=== PATIENT | female | born 1930 | race Caucasian/White ===

== ENCOUNTER 2016-09-30 18:20 | Inpatient (IN) | payer MEDICARE ==
[~2016-09-30 18:20] MED LIST: Sodium Chloride 0.9% 100 ML BAG ONE
--- NOTE | 2016-09-30 19:07 | RAD ---
PORTABLE UPRIGHT FRONTAL CHEST RADIOGRAPH 09/30/16 COMPARISON: 05/20/15 HISTORY: Altered mental status. FINDINGS: Inspiration is shallow. The patient is slightly rotated to the left. Midline sternotomy wires are pr esent. There is atherosclerotic calcification of the aortic arch. Right lung is clear. No pneumothor ax is seen. Mild increased linear density is seen in the left base suggesting atelectasis. Mitral an nulus calcification seen. IMPRESSION: No focal consolidation or alveolar edema. POS: [facility]
[2016-09-30 19:10] LABS: Bilirubin Negative (Negative); Blood, Urine Moderate (Negative); Clarity Turbid (Clear); Glucose, Urine (Dipstick) 500 mg/dL (Negative); Leukocyte Small (Negative); Nitrite Negative (Negative); Protein, Urine (Dipstick) 100 mg/dL (Neg-Trace); Specific Gravity, Urine 1.025 (1.005-1.030); Urobilinogen 0.2 mg/dL (0.2-1.0)
[2016-09-30 19:19] LABS: #Basophils 0.1 thou/uL (0.0-0.2); #Eosinphils 0.1 thou/uL (0.0-0.7); #Lymphocytes 1.6 thou/uL (1.20-3.40); #Monocytes 0.5 thou/uL (0.11-0.59); #Neutrophils 2.6 thou/uL (1.40-6.50); %Basophils 1.1 % (0.0-1.0); %Eosinophils 1.1 % (0.0-10.0); %Lymphocytes 33.2 % (21.0-51.0); %Monocytes 10.8 % (0.0-10.0); %Neutrophils 53.8 % (42.0-75.0); Hemoglobin 12.7 g/dL (12.0-16.0); Mean Corpuscular HGB CONC 33.8 g/dL (32.0-36.0); Mean Corpuscular Hemoglobin 29.8 pg (27.0-31.0); Mean Corpuscular Volume 88.1 fl (81.0-99.0); Mean Platelet Volume 7.4 fL (7.4-10.4); Platelet Count 222 thou/uL (130-400); RBC Distribution Width 11.6 % (11.5-14.5); Red Blood Cell (RBC) Count 4.25 mill/uL (4.20-5.40); White Blood Cell (WBC) Count 4.9 thou/uL (4.8-10.8)
[2016-09-30 19:19] LABS: Bacteria/HPF 4+ HPF (None Seen); Crystals/HPF RARE AMORPH URATES HPF (Negative); Hyaline Casts/LPF 7-10 HYALINE CAST LPF (0-3 Hyaline); Other Casts/LPF 7-10 MIXED CASTS LPF (0-3 Hyaline); RBC/HPF 21-50 HPF (0-3); Renal Epithelial 0-3 HPF (0-3); Squamous Epithelial 0-3 HPF (0-3); Transitional Epithelial 0-3 HPF (0-3); WBC/HPF 21-50 HPF (0-3); Yeast-All Forms Rare HPF (None Seen)
[2016-09-30 19:33] LABS: ALT (SGPT) Less than 6 U/L (0-55); AST (SGOT) 11 U/L (5-34); Albumin 4.1 g/dL (3.4-4.8); Alkaline Phosphatase 95 U/L (40-150); Anion Gap 19 mmol/L (10-20); BUN (Urea Nitrogen) 28 mg/dL (9.8-20.1); Bilirubin, Total 0.3 mg/dL (0.2-1.2); Calc. Creatinine Clearance 0 mL/min (70-130); Calcium 10.4 mg/dL (7.8-10.44); Carbon Dioxide 20 mmol/L (23-31); Chloride 100 mmol/L (98-107); Estimated GFR-MDRD 39; Glucose 274 mg/dL (83-110); Potassium 5.1 mmol/L (3.5-5.1); Protein, Total 7.1 g/dL (5.8-8.1); Sodium 134 mmol/L (136-145)
[2016-09-30] MEDS ORDERED: cefTRIAXone\\ROCEPHIN 1 GM VIAL ONE (19:38)
[2016-09-30 19:39] LABS: CKMB 0.6 ng/mL (0-6.6); Troponin I 0.036 ng/mL (< 0.028)
[2016-09-30] MEDS ORDERED: Dextrose 5% in Water 1,000 ML IV PRN (20:47)
[2016-09-30] MEDS ORDERED: Dextrose 50% Abboject 50 ML SYRINGE IVP PRN (20:49)
[2016-09-30] MEDS ORDERED: Acetaminophen 325 MG TAB PO PRN (20:50)
[2016-09-30] MEDS ORDERED: Ondansetron HCl/PF 4 MG/2 ML Vial IVP PRN (20:52)
[2016-09-30] MEDS: Mirtazapine 15 MG TAB PO SCH (23:05)
[2016-09-30] MEDS: Sodium Chloride 0.9% 1,000 ML IV SCH (23:18)
[2016-10-01] MEDS: Sodium Chloride 0.9% 1,000 ML IV SCH ×2 (03:48→13:54)
[2016-10-01] MEDS: Losartan Potassium 25 MG TAB PO SCH (08:14)
[2016-10-01] MEDS: Insulin Regular 300 UNITS/3 ML VIAL SC PRN ×3 (08:14→20:51)
[2016-10-01] MEDS: Enoxaparin Sodium 30 MG/0.3 ML SYRINGE SC SCH (08:15)
[2016-10-01] MEDS: Nystatin Cream 15 GM TUBE TOP SCH ×2 (08:15→20:52)
[2016-10-01 08:41] LABS: Anion Gap 14 mmol/L (10-20); BUN (Urea Nitrogen) 22 mg/dL (9.8-20.1); Calc. Creatinine Clearance 29 mL/min (70-130); Calcium 9.4 mg/dL (7.8-10.44); Carbon Dioxide 21 mmol/L (23-31); Chloride 108 mmol/L (98-107); Estimated GFR-MDRD 50; Glucose 155 mg/dL (83-110); Potassium 4.4 mmol/L (3.5-5.1); Sodium 139 mmol/L (136-145)
[2016-10-01] MEDS ORDERED: FLU VACC TS2016-17(65YR +) 0.5 ML SYRINGE IM ONE (09:00)
[2016-10-01] MEDS ORDERED: Losartan Potassium 25 MG TAB PO SCH (09:00)
--- NOTE | 2016-10-01 17:24 | HP ---
ADMITTING PHYSICIAN: Le Ruiz M.D. PRIMARY CARE PHYSICIAN: Cindy Gill [facility] in [place]. CHIEF COMPLAINT: Change in mental status and weakness. HISTORY OF PRESENT ILLNESS: Ms. Pineda is an 86-year-old, very pleasant female with a medical history of type 2 diabetes on insulin, dementia , glaucoma, hypertension, CAD and hyperlipidemia. The patient was brought into the emergency room by EMS due to altered mental status and weakness. The patient does live by herself, but her daughter checks on her routinely throughout the day. She had noted that in the morning patient was not eating which was very unusual for her, by evening time when she evaluated the patient again she found her on the floor and she says she did not feel well but without any specific complaints. Daughter states this has happened before and when this occurred, the patient was dehydrated and had a UTI. In the emergency room , the patient was evaluated and she was alert and awake, but she did not know her name and kept quoting the lord's prayer over and over. The patient had blood work done which showed dehydration and a urinary tract infection. The decision was made to admit the patient for IV fluids and IV antibiotic, pending urine culture. When I saw the patient today, she was little bit more alert, awake, oriented to time and place. She was not quoting the lord's prayer this afternoon, per nurses about 8 .a.m. she was still you unable to answer questions, but she has had a significant improvement in her mental status this pm. The daughter was also in the room and states this is an improvement and the patient is not back to baseline, but much improved than as of yesterday when she was brought out to the emergency room. The patient denies any fevers, chest pain, shortness of breath, nausea, vomiting, abdominal pain, no palpitation and she was eating her lunch and tolerating it nicely. PAST MEDICAL HISTORY: Dementia, type 2 diabetes on insulin, hypertension, glaucoma, hyperlipidemia, CAD. PAST SURGICAL HISTORY: Coronary artery bypass 2007, ORIF of the greater tuberosity in 2009, rotator cuff tear repair in 2009. FAMILY HISTORY: Parents , sisters healthy, and no other history. SOCIAL HISTORY: The patient lives at home by herself and was surrounded by a sister, son and daughter who checks up on her routinely, denies any alcohol use , tobacco use or illicit drug use. ALLERGIES: No known drug allergies. MEDICATIONS: Metformin 500 mg b.i.d., Cozaar 25 mg daily, Remeron 15 mg at bedtime. CODE STATUS: Patient is a FULL CODE, but do not intubate. REVIEW OF SYSTEMS: Complete review of systems was negative, otherwise mentioned in the history of present illness or below. CONSTITUTIONAL: Denies weight loss, weight gain. Complains of weakness and altered mental status. CARDIOVASCULAR: Denies chest pain, palpitation, orthopnea. RESPIRATORY: Denies cough, shortness of breath. GASTROINTESTINAL: Denies abdominal pain. Complains of poor appetite. Denies diarrhea, or constipation. GENITOURINARY: Denies urinary frequency, urgency or dysuria. MUSCULOSKELETAL: Complains of generalized weakness. Denies any joint swelling or pain. NEUROLOGICAL: Confused. SKIN: Denies rashes. EYES: Denies double vision. ENT: Denies nosebleeds, sore throat or neck pain. PHYSICAL EXAMINATION: VITAL SIGNS: Temperature 98.0, pulse 70, respirations 18, O2 sat 94% on room air, blood pressure 132/72. GENERAL: The patient is a very pleasant 86-year-old female sitting up in bed having lunch, in no apparent distress, cooperative with the exam. Alert, awake, oriented x2. HEENT: Normocephalic, atraumatic. Pupils are round, reactive and equal to light. Sclerae nonicteric. Moist mucous membranes without erythema or exudate. NECK: Supple, without lymphadenopathy or thyromegaly. LYMPHATICS: No JVD distention. HEART: The patient does have a 4/6 systolic murmur. LUNGS: Clear to auscultation bilaterally. ABDOMEN: Positive bowel sounds, soft, nontender, nondistended, no guarding, no rebound. No palpable masses. EXTREMITIES: No clubbing, cyanosis or edema. NEUROLOGIC: Patient is alert, awake, oriented x2. No obvious focal weakness. SKIN: Small abrasions noted to the left upper chest and mild groin rash. LABORATORY AND IMAGING STUDIES: White count 4.9, hemoglobin 12.7, hematocrit 37.5, platelets 222. Sodium 134, potassium 5.1, bicarbonate 20, BUN 28, creatinine 1.29, glucose 274. BNP 141.7. Urine straw color turbid, high glucose, high protein, moderate blood, small leukocyte esterase, positive WBC. Chest x-ray, no focal consolidation or alveolar edema. ASSESSMENT AND PLAN: This is an 86-year-old female with a history of dementia, hypertension, CAD, hyperlipidemia, glaucoma who presented to the emergency room via EMS due to change in mental status and generalized weakness. In the emergency room, the patient was noted to have a urinary tract infection. We will admit the patient to the medical floor for altered mental status, urinary tract infection and dehydration. We will place the patient on IV Rocephin and Levaquin. We will await urine culture and adjust to p.o. medication as deemed necessary. We will continue the patient on IV fluids until she is able to tolerate oral intake nicely. We will replete electrolytes and monitor for any hemodynamic instability. We will follow urine culture. We will restart the patient's home medications. We will do Accu-Cheks a.c. and at bedtime. We will place her on nystatin b.i.d. f or the groin rash. We will place her on Protonix for deep venous thrombosis prophylaxis and Lovenox and gastrointestinal prophylaxis. We will update family on the patient's progress. CODE STATUS: The patient is a FULL CODE, but no intubation to be done. DISPOSITION: Anticipate greater than 3 midnights stay given altered mental status, generalized weakness, and comorbidities. We will plan to discharge the patient home once medically stable. [facility]
[2016-10-01] MEDS: cefTRIAXone\\ROCEPHIN 1 GM in Sodium Chloride 0.9% 100 ML IVPB SCH (20:45)
[2016-10-01] MEDS: Mirtazapine 15 MG TAB PO SCH ×2 (20:45)
[2016-10-02] MEDS: Sodium Chloride 0.9% 1,000 ML IV SCH ×2 (01:39→11:48)
[2016-10-02] MEDS: Enoxaparin Sodium 30 MG/0.3 ML SYRINGE SC SCH (05:24)
[2016-10-02] MEDS: Losartan Potassium 25 MG TAB PO SCH (08:15)
[2016-10-02] MEDS: Nystatin Cream 15 GM TUBE TOP SCH ×2 (08:16→20:51)
[2016-10-02] MEDS: Insulin Regular 300 UNITS/3 ML VIAL SC PRN ×2 (17:06→20:52)
[2016-10-02] MEDS: cefTRIAXone\\ROCEPHIN 1 GM in Sodium Chloride 0.9% 100 ML IVPB SCH (19:41)
[2016-10-02] MEDS: Mirtazapine 15 MG TAB PO SCH (20:50)
[2016-10-03] MEDS: Sodium Chloride 0.9% 1,000 ML IV SCH ×3 (03:33→23:21)
[2016-10-03] MEDS: Enoxaparin Sodium 30 MG/0.3 ML SYRINGE SC SCH (06:02)
[2016-10-03 06:10] VITALS: BMI 20.9
[2016-10-03] MEDS: Nystatin Cream 15 GM TUBE TOP SCH ×2 (08:35→20:45)
[2016-10-03] MEDS: Losartan Potassium 25 MG TAB PO SCH (08:35)
[2016-10-03] MEDS ORDERED: Sodium Chloride 0.9% 1,000 ML BAG ONE (11:35)
[2016-10-03] MEDS: Insulin Regular 300 UNITS/3 ML VIAL SC PRN ×2 (17:00→20:46)
[2016-10-03] MEDS: Mirtazapine 15 MG TAB PO SCH (20:45)
[2016-10-03] MEDS: cefTRIAXone\\ROCEPHIN 1 GM in Sodium Chloride 0.9% 100 ML IVPB SCH (20:45)
[2016-10-04] MEDS: Enoxaparin Sodium 30 MG/0.3 ML SYRINGE SC SCH (05:50)
[2016-10-04] MEDS: Sodium Chloride 0.9% 1,000 ML IV SCH (07:49)
[2016-10-04] MEDS: Losartan Potassium 25 MG TAB PO SCH (08:57)
[2016-10-04] MEDS: Nystatin Cream 15 GM TUBE TOP SCH (08:58)
[2016-10-04] MEDS ORDERED: Sulfameth/Trimethoprim DS 800-160mg TAB PO SCH ×2 (10:30→21:00)
[2016-10-04 12:54] VITALS: BP 189/83; TEMP 97
--- NOTE | 2016-10-05 00:53 | DIS ---
DATE OF ADMISSION: 09/30/2016 DATE OF DISCHARGE: 10/04/2016 ADMITTING AND DISCHARGING PHYSICIAN: Le Ruiz M.D. FINAL DIAGNOSES: 1. Altered mental status, resolved. 2. Generalized weakness, improving. 3. Dehydration, resolved. 4. Urinary tract infection, improving. 5. Diabetes type 2. 6. Hypertension. 7. Dementia. DISCHARGE MEDICATIONS: Double strength Bactrim 1 tab b.i.d. x2 more days to be completed on 10/06/2016; metformin 500 b.i.d., Cozaar 25 daily, Remeron 15 at bedtime. BRIEF HOSPITAL COURSE: Ms. Pineda is an 86-year-old female with a history of dementia, type 2 diabetes, glaucoma, CAD, hypertension, hyperlipidemia. Patient was brought to the emergency room due to altered mental status and generalized weakness. Patient was noted to have a urinary tract infection and some dehydration and subsequently admitted for IV antibiotics and IV fluids. The patient's urine culture grew E. coli and Klebsiella, and patient was initially treated with IV Rocephin and IV Levaquin. Patient progressively improved. Her mental status returned to baseline, and she was able to communicate better with family members and with caretakers. Patient was noted to be weak, and physical therapy and occupational therapy were consulted for strengthening and to help with activities of daily living prior to return to home. Patient subsequently improved, but she was still weak , but per family members, they wanted patient to return home and continue physical therapy with home health. Patient was switched to p.o. antibiotics, Bactrim, and subsequently discharged home in a stable condition. Patient was discharged back to home with family members in a stable condition. DISCHARGE VITALS: Temperature 97.0, pulse 77, respirations 20, O2 sat 96%, blood pressure 165/77. DISCHARGE INSTRUCTIONS: Patient to follow up with primary care physician within 1 week. ACTIVITY: Ambulate with rolling walker. [facility] to resume physical therapy and occupational therapy. DIET: Diabetic diet. Fall precautions. CODE STATUS: Patient is a FULL CODE, but do not intubate. [facility]
== END 2016-10-04 14:10 | disposition home or self-care (01) | DRG 690 ==
LOC: MADERS 18:20 → MADMS 20:05
PROVIDERS: ADMIT Family Medicine; ATTEND Family Medicine
DX: N39.0 Urinary tract infection, site not specified (principal); E11.65 Type 2 diabetes mellitus with hyperglycemia; F03.90 Unspecified dementia, unspecified severity, without behavioral disturbance, psychotic disturbance, mood disturbance, and anxiety; B96.1 Klebsiella pneumoniae [K. pneumoniae] as the cause of diseases classified elsewhere; E86.0 Dehydration; I10 Essential (primary) hypertension; R41.82 Altered mental status, unspecified; H40.9 Unspecified glaucoma; I25.10 Atherosclerotic heart disease of native coronary artery without angina pectoris; B96.20 Unspecified Escherichia coli [E. coli] as the cause of diseases classified elsewhere; E78.5 Hyperlipidemia, unspecified; R21 Rash and other nonspecific skin eruption
CPT/HCPCS: 36415; 36416; 51701; 71010; 80048; 80053; 81003; 81015; 82553; 83880; 84484; 85025; 87077; 87086; 87186; 93005; 96361; 96365; A4216; A4353; G8978-GP-CJ; G8979-GP-CI; J0696; J1650; J1815; J1956; J7050

== ENCOUNTER 2017-11-27 20:26 | Emergency (ER) | payer MEDICARE ==
[2017-11-27 21:04] LABS: Bilirubin Negative (Negative); Blood, Urine Trace (Negative); Clarity Cloudy (Clear); Glucose, Urine (Dipstick) Negative (Negative); Leukocyte Large (Negative); Nitrite Positive (Negative); Protein, Urine (Dipstick) Negative (Neg-Trace); Urobilinogen 0.2 mg/dL (0.2-1.0); pH, Urine 5.5 (5.0-9.0)
--- NOTE | 2017-11-27 21:43 | RAD ---
PORTABLE CHEST: 11/27/17 COMPARISON: 09/30/16 study. HISTORY: Altered mental status. Heart size appears borderline to slightly enlarged with postop sternotomy change. The patient is rota stefanie. Linear scarring in the left base. The bones are demineralized. IMPRESSION: Chronic changes. No acute process. Stable exam. POS: [facility]
[2017-11-27 22:01] LABS: Specific Gravity, Urine 1.006 (1.002-1.036)
[2017-11-27 22:02] LABS: Bacteria/HPF 4+ HPF (None Seen); Renal Epithelial 0-3 HPF (0-3); Squamous Epithelial 0-3 HPF (0-3); Transitional Epithelial 0-3 HPF (0-3)
[2017-11-27 22:09] LABS: #Basophils 0.1 thou/uL (0.0-0.2); #Eosinphils 0.1 thou/uL (0.0-0.7); #Lymphocytes 1.9 thou/uL (1.20-3.40); #Monocytes 0.4 thou/uL (0.11-0.59); #Neutrophils 1.6 thou/uL (1.40-6.50); %Basophils 1.3 % (0.0-1.0); %Lymphocytes 46.3 % (21.0-51.0); %Neutrophils 39.4 % (42.0-75.0); Hemoglobin 10.8 g/dL (12.0-16.0); Mean Corpuscular HGB CONC 33.6 g/dL (32.0-36.0); Mean Corpuscular Hemoglobin 28.4 pg (27.0-31.0); Mean Corpuscular Volume 84.7 fl (81.0-99.0); Mean Platelet Volume 6.5 fL (7.4-10.4); Platelet Count 162 thou/uL (130-400); RBC Distribution Width 12.1 % (11.5-14.5); White Blood Cell (WBC) Count 4.2 thou/uL (4.8-10.8)
[2017-11-27 22:21] LABS: ALT (SGPT) 9 U/L (8-55); AST (SGOT) 11 U/L (5-34); Albumin 3.6 g/dL (3.4-4.8); Alkaline Phosphatase 65 U/L (40-150); Anion Gap 16 mmol/L (10-20); BUN (Urea Nitrogen) 36 mg/dL (9.8-20.1); Bilirubin, Total 0.3 mg/dL (0.2-1.2); Calc. Creatinine Clearance 0 mL/min (70-130); Calcium 9.4 mg/dL (7.8-10.44); Carbon Dioxide 20 mmol/L (23-31); Chloride 105 mmol/L (98-107); Estimated GFR-MDRD 38; Globulin 2.5 g/dL (2.4-3.5); Glucose 193 mg/dL (83-110); Potassium 4.4 mmol/L (3.5-5.1); Protein, Total 6.1 g/dL (6.0-8.3); Sodium 137 mmol/L (136-145)
[2017-11-27 22:27] LABS: CKMB 1.5 ng/mL (0-6.6); Troponin I 0.043 ng/mL (< 0.028)
[2017-11-27] MEDS ORDERED: cefTRIAXone\\ROCEPHIN 1 GM VIAL ONE (22:51)
== END 2017-11-27 23:10 | disposition home or self-care (01) ==
LOC: MADERS 20:26
DX: N39.0 Urinary tract infection, site not specified (principal); I35.0 Nonrheumatic aortic (valve) stenosis; R29.6 Repeated falls; F03.90 Unspecified dementia, unspecified severity, without behavioral disturbance, psychotic disturbance, mood disturbance, and anxiety; E11.9 Type 2 diabetes mellitus without complications; Z79.4 Long term (current) use of insulin; I10 Essential (primary) hypertension
CPT/HCPCS: 36415; 71045; 80053; 81003; 81015; 82553; 83605; 84484; 85025; 87040; 87077; 87086; 87186; 96372; J0696

== ENCOUNTER 2017-12-05 15:29 | Emergency (ER) | payer MEDICARE ==
[2017-12-05 16:04] LABS: #Eosinphils 0.1 thou/uL (0.0-0.7); #Lymphocytes 1.8 thou/uL (1.20-3.40); #Monocytes 0.4 thou/uL (0.11-0.59); #Neutrophils 1.8 thou/uL (1.40-6.50); %Eosinophils 2.6 % (0.0-10.0); %Lymphocytes 43.8 % (21.0-51.0); %Neutrophils 43.6 % (42.0-75.0); Hemoglobin 11.2 g/dL (12.0-16.0); Mean Corpuscular HGB CONC 32.6 g/dL (32.0-36.0); Mean Corpuscular Hemoglobin 27.8 pg (27.0-31.0); Mean Corpuscular Volume 85.3 fl (81.0-99.0); Mean Platelet Volume 5.2 fL (7.4-10.4); Platelet Count 167 thou/uL (130-400); RBC Distribution Width 12.6 % (11.5-14.5); Red Blood Cell (RBC) Count 4.02 mill/uL (4.20-5.40); White Blood Cell (WBC) Count 4.1 thou/uL (4.8-10.8)
[2017-12-05 16:23] LABS: ALT (SGPT) 7 U/L (8-55); AST (SGOT) 11 U/L (5-34); Albumin 3.8 g/dL (3.4-4.8); Alkaline Phosphatase 59 U/L (40-150); Anion Gap 14 mmol/L (10-20); BUN (Urea Nitrogen) 43 mg/dL (9.8-20.1); Bilirubin, Total 0.5 mg/dL (0.2-1.2); Calc. Creatinine Clearance 0 mL/min (70-130); Calcium 10.2 mg/dL (7.8-10.44); Carbon Dioxide 21 mmol/L (23-31); Chloride 109 mmol/L (98-107); Estimated GFR-MDRD 34; Globulin 2.4 g/dL (2.4-3.5); Glucose 112 mg/dL (83-110); Magnesium 1.4 mg/dL (1.6-2.6); Potassium 4.4 mmol/L (3.5-5.1); Protein, Total 6.2 g/dL (6.0-8.3); Sodium 140 mmol/L (136-145)
[2017-12-05 16:25] LABS: CKMB 0.7 ng/mL (0-6.6); Troponin I 0.048 ng/mL (< 0.028)
[2017-12-05] MEDS ORDERED: Magnesium Sulfate 2 GM/NS 0.9% 50 ML BAG ONE (16:32)
[2017-12-05] MEDS ORDERED: Sodium Chloride 0.9% 500 ML BAG ONE (17:18)
== END 2017-12-05 19:26 | disposition short-term general hospital (02) ==
LOC: MADERS 15:29
DX: N39.0 Urinary tract infection, site not specified (principal); R79.89 Other specified abnormal findings of blood chemistry; F03.90 Unspecified dementia, unspecified severity, without behavioral disturbance, psychotic disturbance, mood disturbance, and anxiety; E11.9 Type 2 diabetes mellitus without complications; I10 Essential (primary) hypertension; Z79.4 Long term (current) use of insulin
CPT/HCPCS: 36415; 80053; 82553; 83735; 84443; 84484; 85025; 93005; 96361; 96365; J3475; J7050

== ENCOUNTER 2018-01-09 08:18 | Emergency (ER) | payer MEDICARE ==
[2018-01-09 08:55] LABS: #Lymphocytes 1.3 thou/uL (1.20-3.40); #Monocytes 0.4 thou/uL (0.11-0.59); #Neutrophils 3.8 thou/uL (1.40-6.50); %Basophils 0.7 % (0.0-1.0); %Eosinophils 0.8 % (0.0-10.0); %Lymphocytes 23.6 % (21.0-51.0); %Monocytes 7.8 % (0.0-10.0); %Neutrophils 67.1 % (42.0-75.0); Hemoglobin 11.1 g/dL (12.0-16.0); Mean Corpuscular HGB CONC 31.2 g/dL (32.0-36.0); Mean Corpuscular Hemoglobin 27.4 pg (27.0-31.0); Mean Corpuscular Volume 87.7 fL (78.0-98.0); Mean Platelet Volume 6.4 fL (7.4-10.4); Platelet Count 178 thou/uL (130-400); RBC Distribution Width 12.7 % (11.5-14.5); Red Blood Cell (RBC) Count 4.07 mill/uL (4.20-5.40); White Blood Cell (WBC) Count 5.6 thou/uL (4.8-10.8)
[2018-01-09 09:14] LABS: ALT (SGPT) 8 U/L (8-55); AST (SGOT) 13 U/L (5-34); Albumin 3.9 g/dL (3.4-4.8); Alkaline Phosphatase 82 U/L (40-150); Anion Gap 19 mmol/L (10-20); BUN (Urea Nitrogen) 15 mg/dL (9.8-20.1); Bilirubin, Total 0.5 mg/dL (0.2-1.2); Calc. Creatinine Clearance 0 mL/min (70-130); Carbon Dioxide 19 mmol/L (23-31); Chloride 102 mmol/L (98-107); Estimated GFR-MDRD 42; Globulin 2.8 g/dL (2.4-3.5); Glucose 231 mg/dL (83-110); Magnesium 1.7 mg/dL (1.6-2.6); Potassium 4.6 mmol/L (3.5-5.1); Protein, Total 6.7 g/dL (6.0-8.3); Sodium 135 mmol/L (136-145)
[2018-01-09 09:15] LABS: CKMB 1.4 ng/mL (0-6.6); Troponin I 0.147 ng/mL (< 0.028)
[2018-01-09 09:38] LABS: Bilirubin Negative (Negative); Blood, Urine Trace (Negative); Clarity Slightly Cloudy (Clear); Glucose, Urine (Dipstick) 100 mg/dL (Negative); Leukocyte Moderate (Negative); Nitrite Positive (Negative); Protein, Urine (Dipstick) 30 mg/dL (Neg-Trace); Urobilinogen 0.2 mg/dL (0.2-1.0)
[2018-01-09 09:42] LABS: RBC/HPF 0-3 HPF (0-3)
[2018-01-09 09:43] LABS: Bacteria/HPF 3+ HPF (None Seen); Squamous Epithelial 0-3 HPF (0-3)
--- NOTE | 2018-01-09 09:46 | CT ---
CT OF THE BRAIN WITHOUT CONTRAST: Date: 01/09/18 COMPARISON: 09/22/09. HISTORY: Fall yesterday with unknown loss of consciousness. Head trauma. TECHNIQUE: Multiple contiguous axial images were obtained in a CT of the brain without contrast. FINDINGS: Mild diffuse cerebral atrophy is seen. There is no evidence of hydrocephalus, intracranial hemorrhage , or extra-axial fluid collection. No large confluent infarction is seen. Intracranial vascular calci fications are present. The calvarium and overlying soft tissues are unremarkable. The visualized paranasal sinuses and masto id air cells are well aerated. IMPRESSION: No evidence of acute intracranial abnormality. POS: [facility]
--- NOTE | 2018-01-09 09:56 | CT ---
CT OF THE CERVICAL SPINE WITHOUT CONTRAST: Comparison: None. History: Fall yesterday with head trauma and neck pain. Technique: Multiple contiguous axial images were obtained in a CT of the cervical spine without contr ast. Sagittal and coronal reformats were performed. FINDINGS: There are mild degenerative changes in the cervical spine. Vertebral bodies and intervertebral discs demonstrate normal height and alignment without fracture or subluxation. No prevertebral soft tissue swelling is seen. The posterior facets are well aligned. Normal alignment of the skull base with the cervical spine is seen. There are calcifications in the bilateral carotid arteries near the bifurcation. The lung apices are unremarkable. IMPRESSION: No evidence of acute osseous abnormality of the cervical spine. POS: [facility]
[2018-01-09] MEDS ORDERED: Lisinopril 10 MG TAB ONE (10:09)
[2018-01-09] MEDS ORDERED: cefTRIAXone\\ROCEPHIN 1 GM VIAL ONE (10:55)
== END 2018-01-09 11:15 | disposition short-term general hospital (02) ==
LOC: MADERS 08:18
DX: R41.82 Altered mental status, unspecified (principal); S00.81XA Abrasion of other part of head, initial encounter; N39.0 Urinary tract infection, site not specified; R79.89 Other specified abnormal findings of blood chemistry; E11.9 Type 2 diabetes mellitus without complications; I10 Essential (primary) hypertension; W19.XXXA Unspecified fall, initial encounter
CPT/HCPCS: 51701; 70450; 72125; 80053; 81003; 81015; 82553; 83735; 84443; 84484; 85025; 93005; 96374; A4353; J0696

== ENCOUNTER 2018-04-08 10:12 | Inpatient (IN) | payer MEDICARE ==
[~2018-04-08 10:12] MED LIST changes: +Sodium Chloride 0.9% 1,000 ML BAG ONE; -Sodium Chloride 0.9% 100 ML BAG ONE
[2018-04-08 10:40] LABS: Bilirubin Negative (Negative); Blood, Urine Moderate (Negative); Clarity Cloudy (Clear); Glucose, Urine (Dipstick) Negative (Negative); Leukocyte Large (Negative); Nitrite Positive (Negative); Protein, Urine (Dipstick) 100 mg/dL (Neg-Trace); Urobilinogen 0.2 mg/dL (0.2-1.0); pH, Urine 8.5 (5.0-9.0)
[2018-04-08 10:45] LABS: Bacteria/HPF 4+ HPF (None Seen); RBC/HPF 0-3 HPF (0-3); Squamous Epithelial 0-3 HPF (0-3)
[2018-04-08] MEDS ORDERED: cefTRIAXone\\ROCEPHIN 1 GM VIAL ONE (10:53)
[2018-04-08] MEDS ORDERED: Ondansetron HCl/PF 4 MG/2 ML Vial ONE (14:05)
--- NOTE | 2018-04-08 14:24 | RAD ---
CHEST 1 VIEW: Date: 04/08/18 HISTORY: Cough. COMPARISON: Radiograph dated 12/05/17. FINDINGS: Lungs without focal confluent air space consolidation, pneumothorax, or effusion. Mild edema. Chronic left lateral pleural thickening. Mitral annular calcifications. IMPRESSION: Chronic changes. No acute intrathoracic abnormality. POS: [facility]
[2018-04-08] MEDS ORDERED: Ondansetron ODT 4 MG TAB PO PRN (17:31)
[2018-04-08] MEDS ORDERED: Enoxaparin Sodium 30 MG/0.3 ML SYRINGE SC SCH (17:31)
[2018-04-08] MEDS ORDERED: Acetaminophen 325 MG TAB PO PRN ×2 (17:31→18:14)
[2018-04-08] MEDS ORDERED: HYDROcodone/Acetaminophen 5/325 mg Tablet PO PRN ×2 (17:31)
[2018-04-08] MEDS ORDERED: Dextrose 50% Abboject 50 ML SYRINGE SLOW IVP PRN (18:17)
[2018-04-08] MEDS ORDERED: Dextrose 5% in Water 1,000 ML IV PRN (18:17)
[2018-04-08] MEDS ORDERED: metFORMIN 850 MG TAB PO SCH (18:30)
[2018-04-08] MEDS: Sodium Chloride 0.9% 1,000 ML IV SCH (18:33)
[2018-04-08] MEDS: HumaLOG 300 UNITS/3 ML VIAL SC PRN (20:11)
[2018-04-08] MEDS: Mirtazapine 15 MG TAB PO SCH (20:12)
[2018-04-08] MEDS: Famotidine 20 MG TAB PO SCH (20:12)
[2018-04-09 02:32] VITALS: BMI 18.3
[2018-04-09] MEDS: Sodium Chloride 0.9% 1,000 ML IV SCH ×2 (04:04→12:52)
[2018-04-09 06:35] LABS: #Basophils 0.1 thou/uL (0.0-0.2); #Eosinphils 0.2 thou/uL (0.0-0.7); #Lymphocytes 1.6 thou/uL (1.20-3.40); #Monocytes 0.5 thou/uL (0.11-0.59); #Neutrophils 3.7 thou/uL (1.40-6.50); %Eosinophils 2.6 % (0.0-10.0); %Monocytes 8.5 % (0.0-10.0); %Neutrophils 60.9 % (42.0-75.0); Hemoglobin 11.4 g/dL (12.0-16.0); Mean Corpuscular HGB CONC 33.5 g/dL (32.0-36.0); Mean Corpuscular Hemoglobin 29.5 pg (27.0-31.0); Mean Corpuscular Volume 88.2 fL (78.0-98.0); Mean Platelet Volume 6.4 fL (7.4-10.4); Platelet Count 195 thou/uL (130-400); RBC Distribution Width 12.1 % (11.5-14.5); Red Blood Cell (RBC) Count 3.84 mill/uL (4.20-5.40); White Blood Cell (WBC) Count 6.1 thou/uL (4.8-10.8)
[2018-04-09 06:49] LABS: ALT (SGPT) Less than 7 U/L (8-55); AST (SGOT) 11 U/L (5-34); Albumin 3.4 g/dL (3.4-4.8); Alkaline Phosphatase 79 U/L (40-150); Anion Gap 12 mmol/L (10-20); BUN (Urea Nitrogen) 35 mg/dL (9.8-20.1); Bilirubin, Total 0.2 mg/dL (0.2-1.2); Calc. Creatinine Clearance 21 mL/min (70-130); Calcium 9.5 mg/dL (7.8-10.44); Carbon Dioxide 23 mmol/L (23-31); Chloride 109 mmol/L (98-107); Estimated GFR-MDRD 38; Globulin 2.7 g/dL (2.4-3.5); Glucose 197 mg/dL (83-110); Potassium 4.4 mmol/L (3.5-5.1); Protein, Total 6.1 g/dL (6.0-8.3); Sodium 140 mmol/L (136-145)
--- NOTE | 2018-04-09 07:18 | HP ---
DATE OF ADMISSION: 04/08/2018 ATTENDING: Caitlin Cortes M.D. PRIMARY CARE PHYSICIAN: Cindy Gill, [facility]. REASON FOR ADMISSION: Increased confusion and UTI. HISTORY OF PRESENT ILLNESS: Ms. Pineda is an 87-year-old female with significant history of advanced dementia associated with intermittent behavioral disturbances, history of dysphagia, noncompliant with diet, family declined alternatives for feedings including enteral feeding/PEG tube, hypertension, unsteady gait, history of falls. The patient was recently admitted to [facility] for skilled rehabilitation. She stayed in [place] recently from 01/18/2018 for deconditioning/general weakness. She went to [facility] after the patient was hospitalized for delirium and dementia from [facility]. The patient has history of recurrent UTI. She had been treated for this both inpatient and outpatient several times in the last 3 months. During her recent stay in the alf, she was treated 2-3 times for UTI with oral antibiotic. The patient was recently discharged on 03/29/2018 home per family's request on extended use of macrobid for prophylactic purposes that she is supposed to complete for 4 weeks. The patient was sent to the ER today by the family for further evaluation of increased confusion. History was taken from the ER records. No family members are available at this time in the room. The patient is a poor historian secondary to fairly advanced dementia and could not contribute to the history. Per ER report, the patient was initially complaining of dysuria. The patient could not describe the onset of symptoms. Further exam in the ER, her initial vital signs showed blood pressure 157/85, pulse 97, respiration 18, and temperature 97.1. Her initial lab work showed urinalysis with moderate blood in the urine, positive nitrite, positive leukocyte esterase and greater than 50 to TNTC urine wbc with 4+ bacteria, sugar at that time was 305 at around 19:46 p.m. Her chest x-ray was unremarkable except for chronic changes of left pleural thickening and mitral annular calcifications, otherwise no acute process. Initial treatment in the ER includes ceftriaxone 1 gram IV and sodium chloride 0.9% IV 1 liter infusion. Patient was reported y the ER physician with no SIRS syndrome, thus admitted in [facility]. When evaluated on the floor, patient is awake, alert, and interactive. She appears confused but seems to be in her baseline mental state based on my previous encounters with patient. She answers simple questions with some appropriateness. She reports no significant pain. She reports no other apparent concerns at this time. Nursing Staff on the floor reports that when the first dose of metformin was given, patient had a hard time swallowing the pill. Of note, the patient has a significant history of dysphagia with increased risk of aspiration as evident by her most recent modified barium swallow study on 02/2018 in the alf. Patient was recommended alternatives for oral intake then; however, family declined and signed on AMA waiver. She was tried on pureed diet and nectar thickened, but patient refuses to eat that family requested for mechanical soft diet, against medical advice with known risk for aspiration. PAST MEDICAL HISTORY: Hypertension, advanced dementia with behavioral disturbances CAD, diabetes type 2, hypertension, glaucoma, dyslipidemia, recurrent urinary tract infection, dysphagia with evidence of aspiration and penetration by modified barium swallow study on 03/07/2018. AMA waiver was signed by daughter, Kristina Stearns on 03/11/2018, declining dietary recommendations and alternatives for oral feeding including PEG tube. Alzheimer's dementia with behavioral disturbances with latest MMSE 16/30 on 03/22/[address] [facility]. Congestive heart failure with left ventricular diastolic dysfunction with ejection fraction of 50%-55% on echo on 11/[address] [facility]. Pyloric stenosis by CT scan showed thickening of the pylorus, declined EGD. Abdominal aortic aneurysm without ruptured. Bilobed infrarenal with dense vascular calcifications throughout the thoracic and abdominal aorta, for conservative management only. Atherosclerotic cardiovascular disease. Unsteady gait with history of falling. History of noncompliance with medical treatment, presenting hazards to Health. Weight loss, depression, and anxiety. SPECIALISTS: Dr. Perera for Cardiology; Dr. Joy for GI, Dr. Sutton for Infectious Disease. PAST SURGICAL HISTORY: CABG in the recurrent urinary tract infection, bypass in 2018, ORIF of the greater tuberosity in 2009, rotator cuff tear repair in 2009. HOSPITALIZATION: Acute encephalopathy and sepsis in 12/06/2017, delirium and dementia in 01/09/2018, [facility]. FAMILY HISTORY: Noncontributory. SOCIAL HISTORY: The patient is a nonsmoker, no alcohol or illicit drug use. The patient lives by herself with family lives around the area. Kristina Stearns is the daughter that is actively involved in patient's care, responsible alliance party. ADLs, she can manually propel wheelchair. She ambulates with rolling walker with unsteadiness. ALLERGIES: NKDA. REVIEW OF SYSTEMS: Unobtainable secondary to advanced dementia, is less confusion. She answers no to all generalized review of system. MEDICATIONS: 1. Aspirin 81 mg p.o. daily. 2. Metformin 850 mg p.o. b.i.d. 3. Losartan 25 mg p.o. daily. 4. Mirtazapine 15 mg p.o. at bedtime. PHYSICAL EXAMINATION: VITAL SIGNS: Blood pressure 142/69, temperature 96.8, pulse 87, respirations 22 , O2 sat 96% room air, height 5 feet 1 inch, weight 97 pounds. GENERAL: The patient is awake, alert, oriented to name only. She thinks she is in [facility]. Disoriented to time. Chronically ill-looking, frail , elderly, interactive, comfortable in exam, not in acute distress. HEENT: Normocephalic, atraumatic. PERRL. Intact EOM. Anicteric sclerae. Oral mucosa is moist. No lesions. NECK: Supple. No LAD/JVD. CHEST: Normal excursion, nonlabored breathing, clear to auscultation bilaterally. CARDIAC: RRR. Normal S1 and S2. ABDOMEN: Flat, soft, normoactive bowel sounds with mild suprapubic tenderness, no rebound, no guarding. Negative CVA tenderness bilaterally. EXTREMITIES: No edema, no cyanosis. SKIN: Positive multiple superficial excoriations of both upper and lower extremities and some in the mid anterior mid chest. No rashes, no suspicious lesions. PSYCHIATRIC: Appears calm with good eye contact, pleasant, cooperative, poor memory, talkative. EXTREMITIES: No edema, no cyanosis. NEUROLOGIC: Nonfocal. Moves all extremities bilaterally. Gait unsteady. ASSESSMENT: 1. Increased confusion or reactive confusion. 2. Recurrent urinary tract infection. 3. Alzheimer's dementia, advanced with behavioral disturbances. 4. Unsteady gait with frequency of falling. 5. Hypertension. 6. Dysphagia with evidence of aspiration and penetration in her most recent modified barium swallow study on 03/09/2018. Noncompliant with diet. Decline PEG tube or other alternatives or enteral feeding. 7. Coronary artery disease, status post stent. 8. Pyloric stenosis, decline EGD. 9. Abdominal aortic aneurysm, for conservative management only. 10. Diabetes type 2. PLAN: The patient is admitted to [facility] for inpatient management for recurrent UTI. We will continue empiric IV antibiotic treatment with Rocephin and started from the ER. I did not see cultures for both blood and urine and was taken ordered from the ER. We will order urine and blood culture, but of note, the patient already received 1 dose of Rocephin from the ER at this time. Continue supportive management with infused intravenous hydration. We will continue home medications as per list. Gastrointestinal prophylaxis with PPI. DVT prophylaxis with Lovenox. Further recommendations depending on the hospital course. Estimated length of stay 3 days, possibly need some skilled stay, depending on her course. CODE STATUS: No family members is present at this point. Based on previous records both the hospital and the alf, the patient is FULL CODE. The patient will be FULL CODE until reinstated otherwise as soon as we talked to the family. [facility]
[2018-04-09] MEDS: HumaLOG 300 UNITS/3 ML VIAL SC PRN ×3 (08:42→20:27)
[2018-04-09] MEDS: Enoxaparin Sodium 30 MG/0.3 ML SYRINGE SC SCH (08:42)
[2018-04-09] MEDS: metFORMIN 850 MG TAB PO SCH ×2 (08:43→17:12)
[2018-04-09] MEDS: Losartan 25 MG TAB PO SCH (08:43)
[2018-04-09] MEDS: Aspirin 81 mg Enteric Coated Tablet PO SCH (08:43)
[2018-04-09] MEDS: Famotidine 20 MG TAB PO SCH ×2 (09:15→20:28)
[2018-04-09] MEDS ORDERED: cefTRIAXone\\ROCEPHIN 1 GM in Sodium Chloride 0.9% 100 ML IVPB SCH (11:00)
[2018-04-09] MEDS: Meropenem 500 MG in Sodium Chloride 0.9% 100 ML IVPB SCH (13:58)
[2018-04-09] MEDS: Sodium Chloride 0.45% 1,000 ML IV SCH (20:14)
[2018-04-09] MEDS: Mirtazapine 15 MG TAB PO SCH (20:27)
[2018-04-10] MEDS: Meropenem 500 MG in Sodium Chloride 0.9% 100 ML IVPB SCH ×2 (02:47→14:11)
[2018-04-10] MEDS: Sodium Chloride 0.45% 1,000 ML IV SCH ×2 (05:15→14:18)
[2018-04-10] MEDS: Enoxaparin Sodium 30 MG/0.3 ML SYRINGE SC SCH (08:49)
[2018-04-10] MEDS: metFORMIN 850 MG TAB PO SCH ×2 (08:50→17:09)
[2018-04-10] MEDS: Losartan 25 MG TAB PO SCH (08:50)
[2018-04-10] MEDS: Famotidine 20 MG TAB PO SCH ×2 (08:50→20:28)
[2018-04-10] MEDS: Aspirin 81 mg Enteric Coated Tablet PO SCH (08:50)
[2018-04-10] MEDS ORDERED: Sodium Chloride 0.9% 1,000 ML BAG ONE (11:55)
[2018-04-10] MEDS ORDERED: Sodium Chloride 0.45% 1,000 ML BAG ONE (11:55)
[2018-04-10] MEDS: HumaLOG 300 UNITS/3 ML VIAL SC PRN (17:26)
[2018-04-10] MEDS: Mirtazapine 15 MG TAB PO SCH (20:28)
[2018-04-11] MEDS: Meropenem 500 MG in Sodium Chloride 0.9% 100 ML IVPB SCH ×2 (01:50→13:03)
[2018-04-11] MEDS: Losartan 25 MG TAB PO SCH (08:41)
[2018-04-11] MEDS: Enoxaparin Sodium 30 MG/0.3 ML SYRINGE SC SCH (08:41)
[2018-04-11] MEDS: metFORMIN 850 MG TAB PO SCH ×2 (08:41→18:07)
[2018-04-11] MEDS: Famotidine 20 MG TAB PO SCH ×2 (08:41→20:58)
[2018-04-11] MEDS: Aspirin 81 mg Enteric Coated Tablet PO SCH (08:42)
[2018-04-11] MEDS: HumaLOG 300 UNITS/3 ML VIAL SC PRN (13:02)
[2018-04-11] MEDS: Sulfameth/Trimethoprim DS 800-160mg TAB PO SCH (20:58)
[2018-04-11] MEDS: Mirtazapine 15 MG TAB PO SCH (20:58)
[2018-04-12 08:49] VITALS: BP 143/71; TEMP 96
[2018-04-12] MEDS: Aspirin 81 mg Enteric Coated Tablet PO SCH (09:07)
[2018-04-12] MEDS: metFORMIN 850 MG TAB PO SCH (09:07)
[2018-04-12] MEDS: Famotidine 20 MG TAB PO SCH (09:07)
[2018-04-12] MEDS: Sulfameth/Trimethoprim DS 800-160mg TAB PO SCH (09:08)
[2018-04-12] MEDS: Enoxaparin Sodium 30 MG/0.3 ML SYRINGE SC SCH (09:08)
[2018-04-12] MEDS: Losartan 25 MG TAB PO SCH (09:08)
[2018-04-12] MEDS: HumaLOG 300 UNITS/3 ML VIAL SC PRN (12:11)
== END 2018-04-12 15:41 | disposition home or self-care (01) | DRG 690 ==
LOC: MADERS 10:12 → MADMS 16:32
PROVIDERS: ADMIT Family Medicine; ATTEND Family Medicine
DX: N39.0 Urinary tract infection, site not specified (principal); F05 Delirium due to known physiological condition; F02.81 Dementia in other diseases classified elsewhere, unspecified severity, with behavioral disturbance; I50.32 Chronic diastolic (congestive) heart failure; K31.1 Adult hypertrophic pyloric stenosis; R64 Cachexia; Z68.1 Body mass index [BMI] 19.9 or less, adult; Z91.11 Patient's noncompliance with dietary regimen; R13.10 Dysphagia, unspecified; R26.81 Unsteadiness on feet; Z91.81 History of falling; I25.10 Atherosclerotic heart disease of native coronary artery without angina pectoris; E11.9 Type 2 diabetes mellitus without complications; E78.5 Hyperlipidemia, unspecified; G30.9 Alzheimer's disease, unspecified; I11.0 Hypertensive heart disease with heart failure; Z91.14 Patient's other noncompliance with medication regimen; Z95.1 Presence of aortocoronary bypass graft; I71.4 Abdominal aortic aneurysm, without rupture; B96.4 Proteus (mirabilis) (morganii) as the cause of diseases classified elsewhere; R62.7 Adult failure to thrive; Z79.4 Long term (current) use of insulin
CPT/HCPCS: 36416; 71045; 80053; 81003; 81015; 85025; 87040; 87077; 87086; 87186; A4216; A4353; G8987-GO-CM; G8988-GO-CI; G8996-GN-CK; G8997-GN-CK; G8998-GN-CK; J0696; J1650; J2185; J2405; J7050

== ENCOUNTER 2018-04-27 02:40 | Emergency (ER) | payer MEDICARE ==
[2018-04-27 03:34] LABS: #Eosinphils 0.5 thou/uL (0.0-0.7); #Lymphocytes 1.3 thou/uL (1.20-3.40); #Monocytes 0.4 thou/uL (0.11-0.59); #Neutrophils 4.5 thou/uL (1.40-6.50); %Basophils 0.7 % (0.0-1.0); %Eosinophils 7.3 % (0.0-10.0); %Lymphocytes 19.6 % (21.0-51.0); %Monocytes 5.4 % (0.0-10.0); Hemoglobin 12.5 g/dL (12.0-16.0); Mean Corpuscular Hemoglobin 28.8 pg (27.0-31.0); Mean Corpuscular Volume 87.2 fL (78.0-98.0); Mean Platelet Volume 7.7 fL (7.4-10.4); Platelet Count 196 thou/uL (130-400); RBC Distribution Width 12.6 % (11.5-14.5); Red Blood Cell (RBC) Count 4.33 mill/uL (4.20-5.40); White Blood Cell (WBC) Count 6.7 thou/uL (4.8-10.8)
[2018-04-27 03:35] LABS: Bilirubin Negative (Negative); Blood, Urine Negative (Negative); Clarity Clear (Clear); Glucose, Urine (Dipstick) Negative (Negative); Leukocyte Negative (Negative); Nitrite Negative (Negative); Protein, Urine (Dipstick) Negative (Neg-Trace); Urobilinogen 0.2 mg/dL (0.2-1.0); pH, Urine 5.5 (5.0-9.0)
[2018-04-27 03:50] LABS: Anion Gap 13 mmol/L (10-20); BUN (Urea Nitrogen) 33 mg/dL (9.8-20.1); Calc. Creatinine Clearance 0 mL/min (70-130); Calcium 10.8 mg/dL (7.8-10.44); Carbon Dioxide 22 mmol/L (23-31); Chloride 107 mmol/L (98-107); Estimated GFR-MDRD 32; Glucose 240 mg/dL (83-110); Potassium 5.5 mmol/L (3.5-5.1); Sodium 136 mmol/L (136-145)
[2018-04-27 03:53] LABS: Troponin I 0.108 ng/mL (< 0.028)
[2018-04-27] MEDS ORDERED: cefTRIAXone\\ROCEPHIN 1 GM VIAL ONE (04:01)
[2018-04-27] MEDS ORDERED: Albuterol Sulfate 2.5 mg/0.5 ml Neb ONE (04:24)
[2018-04-27] MEDS ORDERED: Sodium Chloride 0.9% 100 ML BAG ONE (07:40)
[2018-04-27] MEDS ORDERED: Sodium Chloride 0.9% 1,000 ML BAG ONE (07:40)
--- NOTE | 2018-04-27 08:34 | RAD ---
CHEST 1 VIEW: HISTORY: Dyspnea. COMPARISON: 03/29/2018. FINDINGS: Cardiac silhouette is magnified by projection. Pulmonary vasculature upper limits of normal. Chroni c interstitial markings throughout each lung are similar in appearance to the prior study with some v olume loss of the left lung. Mediastinum remains midline with postoperative changes and aortic calci fication. No lobar consolidation or evidence of pneumothorax. IMPRESSION: Diffuse interstitial prominence, atherosclerosis, and other chronic-type findings are stable. POS: [facility]
== END 2018-04-27 04:55 | disposition home or self-care (01) ==
LOC: MADERS 02:40
DX: J20.9 Acute bronchitis, unspecified (principal); I10 Essential (primary) hypertension; E11.9 Type 2 diabetes mellitus without complications; Z79.4 Long term (current) use of insulin; Z79.899 Other long term (current) drug therapy
CPT/HCPCS: 36415; 51701; 71045; 80048; 81003; 82553; 83605; 83880; 84484; 85025; 87086; 93005; 94640; 94760; 96361; 96365; A4353; J0696; J7050; J7611; J7620